=== PATIENT | female | born 1945 | race Caucasian/White ===

== ENCOUNTER 2017-10-23 15:27 | Emergency (ER) | payer MEDICARE, OTHER ==
[2017-10-23] MEDS ORDERED: DIPH,PERTUS(ACELL)TETVAC-LF 0.5 ML VIAL IM ONE (15:44)
[2017-10-23] MEDS ORDERED: HYDROmorphone 1 MG/ML 1 ML SYRINGE IM STA (16:08)
--- NOTE | 2017-10-23 16:10 | CT ---
EXAMINATION TYPE: CT brain tricia parr DATE OF EXAM: 10/23/2017 COMPARISON: NONE HISTORY: Fall today. Left frontal injury. No LOC. CT DLP: 1315.[address] of the brain was performed. The ventricles, basal cisterns and sulci overlying the cerebral convexities demonstrate mild enlargem ent. There is no evidence for intracranial hemorrhage or sulcal effacement. There is decreased attenuatio n about the periventricular white matter and deep white matter of both cerebral hemispheres, compatib le with chronic small vessel ischemia. No mass effects are seen. If symptoms persist consider MRI. Osseous calvarium is intact. IMPRESSION: 1. Age related atrophic and chronic small vessel ischemic change without acute intracranial process seen at this time. CT Cervical Spine: Unenhanced CT of the cervical spine was performed with bone and soft tissue window settings submitted . Coronal and sagittal reconstruction is obtained. There is normal alignment and prevertebral soft tissues. No evidence for acute cervical fracture . Scattered degenerative disc disease and spondylosis. Biapical scarring. IMPRESSION: 1. No evidence for acute fracture or subluxation of the cervical spine.
--- NOTE | 2017-10-23 16:25 | ED ---
Fall HPI <Jeremiah De Souza - Last Filed: 10/23/17 17:33> - General Source: patient, EMS, RN notes reviewed Mode of arrival: EMS <Arline Howard - Last Filed: 10/23/17 17:41> - General Chief Complaint: Fall Stated Complaint: Fall Time Seen by Provider: 10/23/17 15:58 - History of Present Illness Initial Comments: This is a 72-year-old female presents to the emergency department with chief complaint of fall. Patient was transported to the emergency department via EMS. Patient states that at approximately 2:30 this afternoon she was shopping at [employer]. She tripped on a sign in the middle of the hallway, falling and hitting the left side of her forehead and then landing on her left arm. Patient denies any loss of consciousness, headache or dizziness. She denies use of any blood thinners. Patient states most of her pain is localized to her upper arm. She sustained a small laceration to the left eyebrow. Denies any other injury. Denies fever, chills, chest pain, shortness of breath, abdominal pain, nausea or vomiting, constipation or diarrhea, dysuria or hematuria, numbness or tingling, headache or vision changes. (Arline Howard) - Related Data Home Medications Medication Instructions Recorded Confirmed Aspirin [Adult Low Dose Aspirin EC] 81 mg PO HS 10/23/17 10/23/17 Calcium Carbonate [Calcium] 600 mg PO BID 10/23/17 10/23/17 Levothyroxine Sodium [Synthroid] 50 mcg PO DAILY 10/23/17 10/23/17 Multivitamins, Thera [Multivitamin 1 tab PO HS 10/23/17 10/23/17 (formulary)] Naproxen Sodium [Aleve] 220 mg PO BID PRN 10/23/17 10/23/17 Ubidecarenone [Co Q-10] 100 mg PO DAILY 10/23/17 10/23/17 diphenhydrAMINE HCL [Benadryl] 25 mg PO DAILY PRN 10/23/17 10/23/17 traMADol HCL [Ultram] 50 mg PO DAILY PRN 10/23/17 10/23/17 Previous Rx's Medication Instructions Recorded HYDROcodone/APAP 5-325MG [[place] 5] 1 each PO Q6HR PRN #12 tab 10/23/17 Allergies Allergy/AdvReac Type Severity Reaction Status Date / Time adhesive tape Allergy Rash/Hives Verified 10/23/17 16:54 Penicillins Allergy Unknown Verified 10/23/17 16:54 sutures Allergy Rash/Hives Uncoded 10/23/17 15:42 Review of Systems ROS Other: All systems not noted in ROS Statement are negative. <Jeremiah De Souza - Last Filed: 10/23/17 17:33> ROS Other: All systems not noted in ROS Statement are negative. <JeaneretteArline Morales - Last Filed: 10/23/17 17:41> ROS Statement: Those systems with pertinent positive or pertinent negative responses have been documented in the HPI. Past Medical History Past Medical History: Hyperlipidemia, Thyroid Disorder History of Any Multi-Drug Resistant Organisms: None Reported Past Surgical History: Appendectomy, Hysterectomy, Orthopedic Surgery Additional Past Surgical History / Comment(s): left hip Past Psychological History: No Psychological Hx Reported Smoking Status: Never smoker Past Alcohol Use History: None Reported Past Drug Use History: None Reported <Arline Howard Morales - Last Filed: 10/23/17 17:41> General Exam <Jeremiah De Souza - Last Filed: 10/23/17 17:33> Limitations: no limitations <Clovis Howardistin Morales - Last Filed: 10/23/17 17:41> - General Exam Comments Initial Comments: General: Awake and alert, well-developed; appears uncomfortable and in pain. On presentation the emergency department patient has a sling, splint and c- spine collar. HEENT: Head atraumatic, normocephalic. There is a small superficial 1.0 cm linear laceration at left lateral eyebrow. Pupils are equal, round and reactive to light. Extraocular movements intact. Oropharynx moist without erythema or exudate. Neck: Supple. Normal ROM. No tenderness. Cardiovascular: Regular rate and rhythm. No murmurs, rubs or gallops. Chest symmetrical. Respiratory: Lungs clear to auscultation bilaterally. No wheezes, rales or rhonchi. Normal respiratory effort with no use of accessory muscles. Musculoskeletal: Patient is unwilling to move her left arm due to pain. There is tenderness on palpation of proximal humerus. Patient states that she feels pain in her upper arm with any movement of her elbow or shoulder. Sensation is intact. Radial pulses are 2+ equal and palpable bilaterally. Skin: [place], warm and dry without rashes or lesions. Neurological: Alert and oriented x3. CN II-XII grossly intact. Speech is fluent and answers are appropriate. No focal neuro deficits. Psychiatric: Normal mood and affect. No overt signs of depression or anxiety noted. (Arline Howard) Course <Jeremiah De Souza - Last Filed: 10/23/17 17:33> <Arline Howard - Last Filed: 10/23/17 17:41> Vital Signs 10/23/17 15:39 Temperature 96.6 F L Pulse Rate 73 Respiratory 16 Rate Blood Pressure 144/60 O2 Sat by Pulse 98 Oximetry - Reevaluation(s) Reevaluation #1: 10/23/17 17:33 PA supervision did personally do a [id number] evaluation the patient did discuss the findings with her. She does demonstrate tenderness palpation over left shoulder. X-rays do show evidence of a proximal humerus fracture. Minimal displacement. Patient was a follow-up with her orthopedic surgeon at [facility] in [place] to be placed in a sling pain medication copies of her films with her. She is return if any problem. (Jeremiah De Souza) Procedures - Laceration Laceration #1 Consent Obtained: verbal consent Indication: laceration Site: face (superior to left eyebrow) Size (cm): 1 Description: linear Depth: simple, single layer Pre-repair: wound explored, irrigated extensively, deep structures intact Type of Sutures: other (dermabond) Patient Tolerated Procedure: well, no complications <Arline Howard - Last Filed: 10/23/17 17:41> Medical Decision Making <Jeremiah De Souza - Last Filed: 10/23/17 17:33> - Radiology Data Radiology results: report reviewed <Arline Howard - Last Filed: 10/23/17 17:41> - Medical Decision Making This is a 72-year-old female who presents to the emergency department with chief complaint of fall. Patient sustained a small superficial linear laceration at the upper left eyebrow. Patient stated that she is ALLERGIC to suture material and has poor wound healing with it. Dermabond was applied to the laceration. Patient denied any loss of consciousness, headache or dizziness. However, CT of brain and C-spine were obtained. They revealed no acute abnormalities. Patient complained of upper left arm pain. X-ray revealed a fracture of the humeral neck. Patient placed in a sling and provided pain medication. She states that she has her own orthopedic doctor, Dr. Hernandez of [facility] in [place], [place]. Patient wishes to follow-up with him. Patient is in no acute distress at this time. She will be discharged home. X-ray disc was provided. Pain medication prescription was provided. This case was discussed with attending physician, Dr. De Souza who also evaluated the patient. (Arline Howard) - Radiology Data CT brain and C-spine and impression: 1. Age-related atrophic and chronic small vessel ischemic change without acute intracranial process seen at this time. No evidence for acute fracture or subluxation of the cervical spine. X-ray shoulder and humerus impression: Mildly impacted comminuted humeral neck fracture. No dislocation. (Arline Howard) Disposition <Jeremiah De Souza - Last Filed: 10/23/17 17:33> Time of Disposition: 17:41 <Arline Howard - Last Filed: 10/23/17 17:41> Clinical Impression: Fracture of neck of left humerus Disposition: HOME SELF-CARE Condition: Good Instructions: Proximal Humerus Fracture (ED) Additional Instructions: Please take medications as prescribed. Please follow up with your orthopedic doctor, Dr. Hernandez tomorrow morning. Please follow up with primary care provider within 1-2 days. Return to emergency department if symptoms should worsen or any concerns arise. Prescriptions: HYDROcodone/APAP 5-325MG [[place] 5] 1 each PO Q6HR PRN #12 tab PRN Reason: Pain Referrals: Lidia Jo DO [Primary Care Provider] - 1-2 days
--- NOTE | 2017-10-23 17:06 | XR ---
EXAMINATION TYPE: XR shoulder complete LT DATE OF EXAM: 10/23/2017 COMPARISON: NONE HISTORY: Pain TECHNIQUE: 3 views FINDINGS: There is a slightly impacted transverse fracture of the humeral neck. There is comminution with a large chip fracture of the greater tuberosity. IMPRESSION: Mildly impacted comminuted humeral neck fracture. No dislocation.
--- NOTE | 2017-10-23 17:08 | XR ---
EXAMINATION TYPE: XR humerus LT DATE OF EXAM: 10/23/2017 COMPARISON: NONE HISTORY: Pain TECHNIQUE: 2 views FINDINGS: There is humeral neck fracture. Elbow joint is intact. Humeral shaft is intact. IMPRESSION: Limited exam. Humeral neck fracture noted.
[2017-10-23] MEDS ORDERED: TOPICAL SKIN ADHESIVE 1 EACH AMP TOPICAL ONE (17:17)
[2017-10-24 23:08] VITALS: BP 135/87; PULSE 87; RESP 18; TEMP 98.4
== END 2017-10-23 17:55 | disposition home or self-care (01) ==
LOC: EC 15:27
DX: S42.292A Other displaced fracture of upper end of left humerus, initial encounter for closed fracture (principal); S01.112A Laceration without foreign body of left eyelid and periocular area, initial encounter; E07.9 Disorder of thyroid, unspecified; Z23 Encounter for immunization; Z88.0 Allergy status to penicillin; Z91.048 Other nonmedicinal substance allergy status; Z79.82 Long term (current) use of aspirin; Z79.899 Other long term (current) drug therapy; W01.198A Fall on same level from slipping, tripping and stumbling with subsequent striking against other object, initial encounter; Y93.89 Activity, other specified
CPT/HCPCS: 99284; 12011; 90471; 96372; 73030; 73060; 72125; 70450; 90715; J1170